=== PATIENT | male | born 1945 | race Caucasian/White ===

== ENCOUNTER 2024-01-21 07:55 | Day surgery (SDC) | payer MEDICARE ==
[~2024-01-21] VITALS: Ht 188 cm; Wt 116.8 kg
[~2024-01-21 07:55] MED LIST: Lactated Ringer's 1,000 ML IV ONE
[2024-01-21] MEDS ORDERED: NS 50 ML IV ONE (08:23)
[2024-01-21] MEDS ORDERED: CeFAZolin Sodium 2,000 MG VIAL ONE (08:23)
[2024-01-21] MEDS ORDERED: METO25 (09:01)
[2024-01-21] MEDS ORDERED: ELIQUIS5 M2 PO (09:02)
[2024-01-21] MEDS ORDERED: LISI5 PO (09:03)
[2024-01-21] MEDS ORDERED: EPLE25 PO (09:04)
[2024-01-21] MEDS ORDERED: HYDACE10B (09:05)
[2024-01-21] MEDS ORDERED: TAMS.4ER PO (09:05)
[2024-01-21] MEDS ORDERED: ZOLP10 PO (09:10)
[2024-01-21] MEDS ORDERED: Crestor40 MG PO (09:11)
[2024-01-21] MEDS ORDERED: Lactated Ringer's 1,000 ML IV ONE ×2 (09:22→11:52)
[2024-01-21] MEDS ORDERED: propofoL 20 ML IV ONE (09:37)
[2024-01-21] MEDS ORDERED: FentaNYL Citrate 50 MCG/ML 2 ML Injection ONE ×2 (09:37→11:20)
[2024-01-21] MEDS ORDERED: Dexamethasone Sod Phos 10 MG/ML 1ML VIAL ONE (09:39)
[2024-01-21] MEDS ORDERED: Ondansetron HCl 2 MG / ML 2ML Vial ONE (09:39)
[2024-01-21] MEDS ORDERED: Lidocaine HCl 2% 10 ML SDA ONE (09:53)
--- NOTE | 2024-01-21 10:39 | NUR ---
01/21/24 1039 MAYA BALDWIN PT ATTEMPTED TO ROLL OVER ONTO HIS LEFT SIDE. ENCOURAGED HIM TO LAY ON HIS RIGHT SIDE. PT ADMITS THAT HE IS A SIDE SLEEPER. DENIES NAUSEA AND DISCOMFORT AT THIS TIME.
--- NOTE | 2024-01-21 10:52 | NUR ---
01/21/24 1052 MAYA BALDWIN PT VERY SLEEPY, STILL ON O2 VIA NC AT 4L
[2024-01-21] MEDS ORDERED: HYDROcodone 5-APAP 325 TAB ONE (11:19)
[2024-01-21 11:54] VITALS: BP 125/68
== END 2024-01-21 12:00 | disposition home or self-care (01) ==
LOC: ORSCSDS 07:55
PROVIDERS: Orthopaedic Surgery
PROC: 01N54ZZ Release Median Nerve, Percutaneous Endoscopic Approach (ICD-10-PCS; principal; 2024-01-21 09:30)
PROC: 01N40ZZ Release Ulnar Nerve, Open Approach (ICD-10-PCS; principal; 2024-01-21 09:30)
DX: G56.22 Lesion of ulnar nerve, left upper limb (principal); G56.02 Carpal tunnel syndrome, left upper limb; I10 Essential (primary) hypertension; E11.9 Type 2 diabetes mellitus without complications; I48.91 Unspecified atrial fibrillation; Z79.01 Long term (current) use of anticoagulants; Z79.899 Other long term (current) drug therapy
CPT/HCPCS: 82947; 87070; 87075; 87205; 88304; 88313; A9270; J0690; J1100; J2001; J2003; J2405; J2704; J3010; J7120

== ENCOUNTER 2024-05-05 15:40 | Inpatient (IN) | payer MEDICARE ==
[~2024-05-05] VITALS: Ht 188 cm; Wt 120.6 kg
[~2024-05-05 15:40] MED LIST changes: +Crestor40 MG PO; +ELIQUIS5 M2 PO; +EPLE25 PO; +HYDACE10B; +LISI5 PO; -Lactated Ringer's 1,000 ML IV ONE; +METO25; +TAMS.4ER PO; +ZOLP10 PO
[2024-05-05] MEDS ORDERED: FentaNYL Citrate 50 MCG/ML 2 ML Injection IV ONE ×2 (16:50→18:05)
[2024-05-05 19:29] LABS: BASOPHILS ABSOLUTE AUTO 0.05 K/mm3 (0.00-0.23); BASOPHILS PERCENT AUTO 1 % (0-2); EOSINOPHILS ABSOLUTE AUTO 0.04 K/mm3 (0.00-0.68); EOSINOPHILS PERCENT AUTO 0 % (0-6); Hematocrit 33.1 % (37.0-53.0); Hemoglobin 11.4 g/dL (13.5-17.5); IMMATURE GRAN ABSOLUTE AUTO 0.03 K/mm3 (0.00-0.10); IMMATURE GRAN PERCENT AUTO 0 % (0-1); LYMPHOCYTES ABSOLUTE AUTO 1.07 K/mm3 (0.84-5.20); LYMPHOCYTES PERCENT AUTO 11 % (21-46); MONOCYTES ABSOLUTE AUTO 0.77 K/mm3 (0.16-1.47); MONOCYTES PERCENT AUTO 8 % (4-13); Mean Corpuscular HGB 32.9 pg (26.0-34.0); Mean Corpuscular HGB Conc 34.4 g/dL (31.5-36.5); Mean Corpuscular Volume 95 fL (80-100); Mean Platelet Volume 9.4 fL (9.1-12.4); NEUTROPHILS ABSOLUTE AUTO 7.73 K/mm3 (1.96-9.15); NEUTROPHILS PERCENT AUTO 80 % (41-73); Platelet Count 212 K/mm3 (150-400); RDW Coefficient Variation 12.7 % (11.7-14.2); RDW Standard Deviation 43.6 fL (35.1-46.3); Red Blood Cell Count 3.47 M/mm3 (4.30-5.90); White Blood Cell Count 9.69 K/mm3 (4.00-11.30)
[2024-05-05] MEDS ORDERED: HYDROmorphone HCl/Pf 1MG SYR IV PRN (19:45)
[2024-05-05 19:55] LABS: Albumin, Blood 4.1 g/dL (3.4-5.0); Albumin/Globulin Ratio 1.4 (0.8-1.8); Bilirubin, Total 0.5 mg/dL (0.1-1.0); Bun/Creatinine Ratio 25.2 (12.0-20.0); Calcium, Blood 9.2 mg/dL (8.5-10.1); Creatinine, Blood 0.72 mg/dL (0.60-1.20); Potassium, Blood 3.8 mmol/L (3.5-5.5); Total Protein, Blood 7.1 g/dL (6.4-8.2)
[2024-05-05] MEDS ORDERED: Ondansetron HCl 2 MG / ML 2ML Vial IV PRN (19:55)
[2024-05-05] MEDS ORDERED: FLU VACC TS2024-25(6MOS UP)/PF 45 MCG/0.5 ML SYRINGE IM ONE (19:55)
[2024-05-05] MEDS ORDERED: NS 1,000 ML IV SCH (19:55)
[2024-05-05] MEDS ORDERED: HYDROmorphone HCl/Pf 1MG SYR IV ONE (20:00)
[2024-05-05] MEDS ORDERED: OxyCODONE 5 mg/Acetamin 325 mg TABLET PO PRN (20:00)
[2024-05-05] MEDS ORDERED: Ketorolac Tromethamine 15mg Vial IV PRN (20:15)
[2024-05-05] MEDS ORDERED: Tamsulosin HCl 0.4 MG Cap PO SCH (21:00)
[2024-05-05] MEDS ORDERED: Metoprolol Tartrate 25 MG Tab PO SCH (21:00)
[2024-05-05] MEDS ORDERED: Sennosides 8.6 MG Tab PO SCH (21:00)
[2024-05-05] MEDS ORDERED: Zolpidem Tartrate 10 MG Tab PO SCH (21:00)
[2024-05-05 21:02] LABS: International Normalized Ratio 1.08; Prothrombin Time Results 11.5 Sec (9.7-11.5)
[2024-05-05 22:35] VITALS: BP 133/75
[2024-05-06] MEDS ORDERED: HYDROmorphone HCl/Pf 1MG SYR IV PRN (01:10)
--- NOTE | 2024-05-06 04:46 | NUR ---
SHIFT SUMMARY JASKARAN ARRIVED TO THE ED WITH A L FEMUR FX. PT ALERT AND FULLY ORIENTED. PAIN RELATIVELY WELL CONTROLLED. ADMIT COMPLETED. DISTAL PULSES PALPABLE, PT ABLE TO WIGGLE TOES. PT KEPT NPO FROM MIDNIGHT. NO ACUTE EVENTS AFTER ARRIVAL. PT ON TELE - HX AFIB. SINUS
[2024-05-06 05:22] LABS: BASOPHILS ABSOLUTE AUTO 0.02 K/mm3 (0.00-0.23); BASOPHILS PERCENT AUTO 0 % (0-2); EOSINOPHILS ABSOLUTE AUTO 0.01 K/mm3 (0.00-0.68); EOSINOPHILS PERCENT AUTO 0 % (0-6); Hematocrit 30.5 % (37.0-53.0); Hemoglobin 10.3 g/dL (13.5-17.5); IMMATURE GRAN ABSOLUTE AUTO 0.03 K/mm3 (0.00-0.10); IMMATURE GRAN PERCENT AUTO 0 % (0-1); LYMPHOCYTES ABSOLUTE AUTO 0.98 K/mm3 (0.84-5.20); LYMPHOCYTES PERCENT AUTO 12 % (21-46); MONOCYTES ABSOLUTE AUTO 0.92 K/mm3 (0.16-1.47); MONOCYTES PERCENT AUTO 11 % (4-13); Mean Corpuscular HGB 32.7 pg (26.0-34.0); Mean Corpuscular HGB Conc 33.8 g/dL (31.5-36.5); Mean Corpuscular Volume 97 fL (80-100); Mean Platelet Volume 9.5 fL (9.1-12.4); NEUTROPHILS ABSOLUTE AUTO 6.29 K/mm3 (1.96-9.15); NEUTROPHILS PERCENT AUTO 76 % (41-73); Platelet Count 200 K/mm3 (150-400); RDW Coefficient Variation 12.8 % (11.7-14.2); RDW Standard Deviation 45.1 fL (35.1-46.3); Red Blood Cell Count 3.15 M/mm3 (4.30-5.90); White Blood Cell Count 8.25 K/mm3 (4.00-11.30)
[2024-05-06 05:38] LABS: International Normalized Ratio 1.09; Prothrombin Time Results 11.6 Sec (9.7-11.5)
[2024-05-06 06:02] LABS: Albumin, Blood 3.9 g/dL (3.4-5.0); Albumin/Globulin Ratio 1.3 (0.8-1.8); Bilirubin, Total 0.5 mg/dL (0.1-1.0); Bun/Creatinine Ratio 24.7 (12.0-20.0); Calcium, Blood 9.1 mg/dL (8.5-10.1); Creatinine, Blood 0.73 mg/dL (0.60-1.20); Magnesium, Blood 1.8 mg/dL (1.6-2.4); Total Protein, Blood 6.9 g/dL (6.4-8.2)
[2024-05-06 07:29] VITALS: BP 145/76
[2024-05-06] MEDS ORDERED: Eplerenone 25 MG Tab PO SCH (09:00)
[2024-05-06] MEDS ORDERED: Lisinopril 5 MG Tab PO SCH (09:00)
[2024-05-06] MEDS ORDERED: Docusate Sodium 100 MG Cap PO SCH (09:00)
[2024-05-06] MEDS ORDERED: Rosuvastatin Calcium 10 MG Tab PO SCH (09:00)
--- NOTE | 2024-05-06 10:33 | NUR ---
DR PARSONS IN TO SEE PT.
--- NOTE | 2024-05-06 10:45 | NUR ---
JEANETH MOCK, ORDER MAKE UP CLERK IN TO SEE PT.
[2024-05-06 14:00] VITALS: BP 148/87
[2024-05-06] MEDS ORDERED: LORazepam 0.5 MG Tab PO PRN (14:10)
--- NOTE | 2024-05-06 15:28 | NUR ---
PT VERY ANXIOUS AND RESTLESS. MEDICATED PER ORDERS FOR ANXIETY AND PAIN. REPOSITIONED PT IN BED. COACHED ON RELAXATION BREATHING. PT HAS FAN ON AND COOL COMPRESS TO HEAD. S.O. BEDSIDE. CALL LIGHT IN REACH.
--- NOTE | 2024-05-06 18:28 | NUR ---
SUMMARY PT HAS BEEN ANXIOUS AND RESTLESS T/O AFTERNOON. MEDICATED PER ORDERS DURING SHIFT FOR ANXIETY AND PAIN. WORKED WITH PT ON RELAXATION BREATHING AND FAN WAS PROVIDED FOR COMFORT. PT WANTED TO GET UP TO USE BSC, EDUCATED PT ON SAFETY AND NEED TO MAINTIN BEDREST UNTIL LLE SURGICALLY REPAIRED. ATTEMPTED TO USE BEDPAN BUT DID NOT HAVE BM. USING URINAL TO VOID. IV FLUIDS INFUSING PER ORDERS. CALL LIGHT IN REACH.
[2024-05-06 20:13] VITALS: BP 124/69
[2024-05-07] VITALS (17 sets, daily range): BP systolic 100–143; BP diastolic 51–80
[2024-05-07] MEDS ORDERED: Vancomycin HCL 1,000 MG in NS 250 ML IV SCH ×2 (06:00→21:30)
[2024-05-07] MEDS ORDERED: CeFAZolin Sodium 2,000 MG in NS 100 ML IV SCH ×2 (06:00→17:30)
[2024-05-07] MEDS ORDERED: Tranexamic Acid 100 ML IV SCH (07:35)
[2024-05-07] MEDS ORDERED: propofoL 20 ML IV ONE (07:48)
[2024-05-07] MEDS ORDERED: FentaNYL Citrate 50 MCG/ML 2 ML Injection ONE ×2 (07:48→11:50)
[2024-05-07] MEDS ORDERED: Dexamethasone Sod Phos 10 MG/ML 1ML VIAL ONE ×2 (07:50→08:18)
[2024-05-07] MEDS ORDERED: Ondansetron HCl 2 MG / ML 2ML Vial ONE (07:50)
[2024-05-07] MEDS ORDERED: Tranexamic Acid 100 ML IV ONE (08:13)
[2024-05-07] MEDS ORDERED: Ropivacaine 0.5% HCL/PF 5 MG/ML 30ML Vial ONE (08:19)
--- NOTE | 2024-05-07 08:19 | NUR ---
SHIFT SUMMARY NOC. PT ADMITTED FOR LEFT FEMUR FRACTURE POST FALL. LLE IS SWOLLEN, PT PULSES INTACT AND PT CAN WIGGLE TOES. PT MEDICATED FOR PAIN WITH ORAL PERCOCET WITH REPORTED RELIEF. PT BECAME MORE CONFUSED AFTER TAKING AMBIEN. PT SET OFF BED ALARM AND WANTING TO GET UP AND AMBULATE TO THE BATHROOM. EXTENSIVE EDUCATION PROVIDED ON BED REST AND PROTECTING LLE. PT ANXIOUS AT TIMES BUT CALMED WITH REASSURANCE, REPOSITIONING, AND COMMUNICATION. PT VOIDING URINE. PT INTERITTENTLY CALLS APPROPRIATELY. CALL LIGHT IN REACH.
[2024-05-07] MEDS ORDERED: Midazolam HCl 1MG / ML 2ML Vial ONE (08:51)
[2024-05-07] MEDS ORDERED: Phenylephrine HCl 100 MCG/ML-NS 10MLSYR (1MG/10ML) ONE (09:33)
[2024-05-07] MEDS ORDERED: Ondansetron HCl 2 MG / ML 2ML Vial IV PRN (09:35)
[2024-05-07] MEDS ORDERED: Naloxone HCl 0.4MG / ML 1ML Vial IV PRN (09:35)
[2024-05-07] MEDS ORDERED: Metoclopramide HCl 10 MG Tab PO PRN (09:35)
[2024-05-07] MEDS ORDERED: Ondansetron 4 MG TAB PO PRN (09:35)
[2024-05-07] MEDS ORDERED: Magnesium Hydroxide Conc 10 ML UDC PO PRN (09:35)
[2024-05-07] MEDS ORDERED: ePHEDrine Sulfate 50 MG/ML 1ML Injection ONE (09:36)
[2024-05-07] MEDS ORDERED: DiphenhydrAMINE HCL 25 MG Cap PO PRN (09:40)
[2024-05-07] MEDS ORDERED: Acetaminophen 325 MG TABLET PO PRN (09:40)
[2024-05-07] MEDS ORDERED: HYDROmorphone HCl/Pf 1MG SYR IV PRN (09:40)
[2024-05-07] MEDS ORDERED: Bisacodyl 10 MG Supp PR PRN (09:40)
[2024-05-07] MEDS ORDERED: OxyCODONE HCL 5 MG TAB PO PRN (09:40)
[2024-05-07] MEDS ORDERED: PNEUMOC 20-VAL CONJ-DIP CRM/PF 0.5 ML SYRINGE IM SCH (09:40)
[2024-05-07] MEDS ORDERED: FLU VACC TS2024-25(6MOS UP)/PF 45 MCG/0.5 ML SYRINGE IM SCH (09:45)
[2024-05-07] MEDS ORDERED: Sugammadex Sodium 200 MG/2ML SDV (100 MG/ML) ONE (09:59)
[2024-05-07] MEDS ORDERED: HYDROmorphone HCl/Pf 1MG SYR ONE (11:47)
[2024-05-07] MEDS ORDERED: NS KCl 20mEq 1,000 ML IV SCH (12:00)
[2024-05-07] MEDS ORDERED: Lactated Ringer's 1,000 ML IV ONE (12:02)
--- NOTE | 2024-05-07 13:14 | NUR ---
PACU TO 216 PT BROUGHT OUT TO HIS ROOM, 216, FROM [facility]. SECURITY CALLED PER PACU DUE TO CONFUSION WHEN FIRST WAKING UP AND THEY CAME OUT TO THE ROOM WITH HIM. HE APPEARS TO BE A/O, DISCUSSED PLAN TO GET HIM UP AND MOVING ONCE A BRACE IS SECURED, DISCUSSED WEIGHT BEARING STATUS TO WHICH HE REPORTED AN UNDERSTANDING OF. HE APPEARS TO BE CALM AND UNDERSTANDING OF THE PLAN, SECURITY NOT NEEDED AT THIS TIME. POST OP VITALS STARTED, EDU WRAP TO LLE C/D/I, GAUZE UNDER EDU C/D/I WELL, DISTAL PULSE PRESENT LLE AND CAP REFIL < 3 SECONDS.
--- NOTE | 2024-05-07 18:36 | NUR ---
SHIFT SUMMARY POD0 DISTAL FEMUR NAILING, A/OX4, VSS, TOLERATING PO, HE WAS A BIT CONFUSED INITIALLY POST OP BUT HAS CLEARED UP AND IS PLEASANT WITH STAFF AND FAMILY. WORKED WITH THERAPY TODAY, NEEDS IROM BRACE FOR MOBILITY. NO ACUTE EVENTS THIS SHIFT, CALL LIGHT IN REACH.
[2024-05-07] MEDS ORDERED: HYDROcodone 10-APAP 325 TAB PO PRN (20:35)
--- NOTE | 2024-05-07 20:40 | NUR ---
PHYSICIAN COMMUNICATION INFORMED HOSPITALIST GISSELLE Parks OF PT REPORTING HOW HE IS NOT LIKING HOW 5MG OXYCODONE IS MAKING HIM FEEL & WOULD PREFER TO STOP MEDICATION IN EXCHANGE FOR HIS HOME DOSE NORCO. GISSELLE Parks PLACED 10/325 MG PO NORCO Q4PRN & REQUESTED OTHER PAIN MEDS BE DC'D. INFORMED PRIMARY RN.
[2024-05-07] MEDS ORDERED: Docusate Sodium 100 MG Cap PO SCH (21:00)
[2024-05-08 00:01] VITALS: BP 118/51
[2024-05-08 04:12] VITALS: BP 144/59
[2024-05-08 05:29] LABS: BASOPHILS ABSOLUTE AUTO 0.01 K/mm3 (0.00-0.23); BASOPHILS PERCENT AUTO 0 % (0-2); EOSINOPHILS PERCENT AUTO 0 % (0-6); Hematocrit 22.7 % (37.0-53.0); Hemoglobin 7.6 g/dL (13.5-17.5); IMMATURE GRAN ABSOLUTE AUTO 0.09 K/mm3 (0.00-0.10); IMMATURE GRAN PERCENT AUTO 1 % (0-1); LYMPHOCYTES ABSOLUTE AUTO 0.81 K/mm3 (0.84-5.20); LYMPHOCYTES PERCENT AUTO 7 % (21-46); MONOCYTES ABSOLUTE AUTO 1.36 K/mm3 (0.16-1.47); MONOCYTES PERCENT AUTO 12 % (4-13); Mean Corpuscular HGB Conc 33.5 g/dL (31.5-36.5); Mean Corpuscular Volume 99 fL (80-100); Mean Platelet Volume 9.8 fL (9.1-12.4); NEUTROPHILS ABSOLUTE AUTO 8.91 K/mm3 (1.96-9.15); NEUTROPHILS PERCENT AUTO 80 % (41-73); Platelet Count 146 K/mm3 (150-400); RDW Coefficient Variation 12.9 % (11.7-14.2); RDW Standard Deviation 46.6 fL (35.1-46.3); White Blood Cell Count 11.18 K/mm3 (4.00-11.30)
[2024-05-08 06:16] LABS: Bun/Creatinine Ratio 26.9 (12.0-20.0); Calcium, Blood 7.9 mg/dL (8.5-10.1); Creatinine, Blood 0.78 mg/dL (0.60-1.20); Magnesium, Blood 1.6 mg/dL (1.6-2.4); Potassium, Blood 4.2 mmol/L (3.5-5.5)
[2024-05-08 07:21] VITALS: BP 105/52
--- NOTE | 2024-05-08 07:34 | NUR ---
SHIFT SUMMARY NOC. POD 1 FOR LEFT FEMUR REPAIR. DRESSING ON LLE IS C/D/I WITH EDU WRAP. NEW ORDERS RECEIVED TO D/C PERCOCET AND START NORCO. PT MEDICATED FOR PAIN X1 WITH REPORTED RELIEF. PT LESS CONFUSED DURING THE NIGHT COMPARED TO PREVIOUS NOC SHIFT WITH THIS RN. PT HAD I ATTEMPT OUT OF BED SETTING OFF BED ALARM. PT FOLLOWING DIRECTIONS AND IS MAINTAINING NWB STATUS ON LLE. PT VOIDING URINE AND TOLERATING CLEAR LIQUIDS. PT CALLS APPROPRIATELY MAJORITY OF THE TIME THIS SHIFT. CALL LIGHT IN REACH.
--- NOTE | 2024-05-08 08:33 | NUR ---
CALLS PLACED TO [employer] AND MULTIPLE RESAW OPERATOR FOR L DORENE BRARAFAELA. DUE TO STAFFING SHORTAGES MULTIPLE RESAW OPERATOR IS NOT AVAILIBLE TODAY AND REQUESTS CALL TOMORROW IF STILL NEEDED. MESSAGE LEFT WITH ANSWERING SERVICE FOR [employer].
--- NOTE | 2024-05-08 09:35 | NUR ---
SECOND CALL TO [facility] AT 0934, PER ANSWERING SERVICE NO CRUTCHING CONTRACTOR SERVICES IN [place] TODAY. DR RODRIGUEZ NOTIFIED DURING AM ROUNDS, STATES HE WILL PLACE BRACE IN OFFICE.
--- NOTE | 2024-05-08 11:24 | NUR ---
ORTHO NERISSA ORTHO ROUNDED ON PATIENT AND PERFORMED A DRESSING CHANGE, DISCUSSED FORMER RECOMMENDATION FOR IROM BRACE STATING IT WOULD BE MORE PROBLMATIC THAN IT WAS WORTH BUT IS STILL RECOMMENDING TTWB FOR NOW AND WILL TAKE AN XR AT HIS FOLLOW UP VISIT AND EVALUATE AGAIN AT THAT TIME. PT ABLE TO GET UP AND TRANSFER SAFELY TO BSC WHILE MAINTAINING WEIGHT BEARING STATUS, PATIENT EVEN VERBALIZED HIS WEIGHT BEARING STATUS TO THIS RN JUST BEFORE TRANSFERRINGTO BSC. REVIEWED THERAPY DC RECOMMENDATIONS WITH THE PATIENT WHICH IS HOME WITH HH. PATIENT LIVES AT HOME WITH HIS WHO IS ABLE TO ASSIST HIM AT HOME, DAUGHTER LIVES LOCALLY AND IS ALSO ABLE TO ASSIST.
[2024-05-08 15:40] VITALS: BP 108/49
--- NOTE | 2024-05-08 17:32 | NUR ---
DISCHARGE/SHIFT SUMMARY POD1 L DISTAL FEMUR FX REPAIR, A/OX4, VSS, TOLERATING PO, ABLE TO STAND PIVOT WITH MINIMAL ASSISTANCE, DRESSING TO L LEG C/D/I. DISCHARGE COMPLETED, WILL DISCUSSED HOME CARE AND FOLLOW UP, HE IS ALREADY TAKING PAIN MEDICATIONS AT HOME AND WILL CONTINUE THEM ON DISCHARGE, PLAN TO BE PICKED UP BY HIS DAUGHTER AT 1900.
== END 2024-05-08 18:10 | disposition home or self-care (01) | DRG 481 ==
LOC: ER 15:40 → SURS 20:25 → ERHOLD 20:25 → SURS 22:22
PROVIDERS: Nurse Practitioner Acute Care; Orthopaedic Surgery; Student in an Organized Health Care Education/Training Program; ADMIT Internal Medicine
PROC: 0QSC06Z Reposition Left Lower Femur with Intramedullary Internal Fixation Device, Open Approach (ICD-10-PCS; principal; 2024-05-07 07:00)
DX: M97.8XXA Periprosthetic fracture around other internal prosthetic joint, initial encounter (principal); I48.20 Chronic atrial fibrillation, unspecified; W10.9XXA Fall (on) (from) unspecified stairs and steps, initial encounter; I10 Essential (primary) hypertension; F32.A Depression, unspecified; E78.5 Hyperlipidemia, unspecified; N40.0 Benign prostatic hyperplasia without lower urinary tract symptoms; Z96.653 Presence of artificial knee joint, bilateral; M48.00 Spinal stenosis, site unspecified; Z79.01 Long term (current) use of anticoagulants; Z79.899 Other long term (current) drug therapy; Z79.811 Long term (current) use of aromatase inhibitors; Z98.890 Other specified postprocedural states; Z79.891 Long term (current) use of opiate analgesic
CPT/HCPCS: 36415; 73552; 80048; 80053; 83735; 85025; 85610; 85730; 94760; 94762; 96374; 96375; 96376; 97110; 97161; 97530; 99285-25; A9270; C1713; C1769; J0690; J1100; J1171; J1885; J2250; J2371; J2405; J2704; J2795; J3010; J3370; J7030; J7050; J7120

== ENCOUNTER → 2024-05-19 | Outpatient (CLI) | payer MEDICARE | LOC: LAB SHORT 14:45 → LAB 14:45 | DX: R30.0 Dysuria (principal) | CPT/HCPCS: 87077; 87086; 87186 ==

== ENCOUNTER 2024-11-28 04:37 | Emergency (ER) | payer MEDICARE ==
[~2024-11-28] VITALS: Ht 188 cm; Wt 111.1 kg
[~2024-11-28 04:37] MED LIST changes: +METO25ER PO
[2024-11-28] MEDS ORDERED: Ondansetron HCl 2 MG / ML 2ML Vial IV ONE (06:05)
[2024-11-28] MEDS ORDERED: FentaNYL Citrate 50 MCG/ML 2 ML Injection IV ONE (06:05)
[2024-11-28] MEDS ORDERED: Morphine Sulfate 4 MG/1 ML Injection IV ONE (07:30)
[2024-11-28 08:28] LABS: BASOPHILS ABSOLUTE AUTO 0.03 K/mm3 (0.00-0.23); BASOPHILS PERCENT AUTO 0 % (0-2); EOSINOPHILS ABSOLUTE AUTO 0.07 K/mm3 (0.00-0.68); EOSINOPHILS PERCENT AUTO 1 % (0-6); Hematocrit 34.9 % (37.0-53.0); Hemoglobin 11.3 g/dL (13.5-17.5); IMMATURE GRAN ABSOLUTE AUTO 0.04 K/mm3 (0.00-0.10); IMMATURE GRAN PERCENT AUTO 1 % (0-1); LYMPHOCYTES ABSOLUTE AUTO 1.00 K/mm3 (0.84-5.20); LYMPHOCYTES PERCENT AUTO 12 % (21-46); MONOCYTES ABSOLUTE AUTO 0.81 K/mm3 (0.16-1.47); MONOCYTES PERCENT AUTO 10 % (4-13); Mean Corpuscular HGB Conc 32.4 g/dL (31.5-36.5); Mean Corpuscular Volume 95 fL (80-100); NEUTROPHILS ABSOLUTE AUTO 6.24 K/mm3 (1.96-9.15); NEUTROPHILS PERCENT AUTO 76 % (41-73); NRBC ABSOLUTE 0.00 K/mm3 (0.00-0.02); NRBC Auto 0.0 /100 WBC (0.0-0.2); Platelet Count 249 K/mm3 (150-400); RDW Coefficient Variation 13.2 % (11.7-14.2); RDW Standard Deviation 46.5 fL (35.1-46.3)
[2024-11-28] MEDS ORDERED: HYDROmorphone HCl/Pf 1MG SYR IV ONE (08:45)
[2024-11-28] MEDS ORDERED: Metoprolol Tartrate 1 MG/ML 5 ML VIAL IV ONE (08:45)
[2024-11-28 08:54] LABS: Alanine Aminotransfer (ALT/SGP 29.0 U/L (12-78); Albumin, Blood 3.6 g/dL (3.4-5.0); Albumin/Globulin Ratio 0.9 (0.8-1.8); Anion Gap 7.0 mmol/L (3-11); Aspartate Aminotrans (AST/SGOT 42.0 U/L (12-37); Bilirubin, Total 0.8 mg/dL (0.1-1.0); Blood Urea Nitrogen 16.0 mg/dL (8-24); CO2, Blood 27.0 mmol/L (21-32); Calcium, Blood 8.7 mg/dL (8.5-10.1); Chloride, Blood 106.0 mmol/L (98-108); Creatinine, Blood 0.6 mg/dL (0.60-1.20); Globulin, Blood 4.1 g/dL (2.2-4.0); Glucose, Blood 145.0 mg/dL (70-99); Potassium, Blood 4.1 mmol/L (3.5-5.5); Sodium, Blood 136.0 mmol/L (136-145); Total Protein, Blood 7.7 g/dL (6.4-8.2)
[2024-11-28 09:01] VITALS: BP 130/65
== END 2024-11-28 09:05 | disposition short-term general hospital (02) ==
LOC: ER 04:37
PROVIDERS: Emergency Medicine
DX: S12.500A Unspecified displaced fracture of sixth cervical vertebra, initial encounter for closed fracture (principal); S10.83XA Contusion of other specified part of neck, initial encounter; R07.9 Chest pain, unspecified; W18.30XA Fall on same level, unspecified, initial encounter; Z79.01 Long term (current) use of anticoagulants; Z79.899 Other long term (current) drug therapy; I10 Essential (primary) hypertension; I48.91 Unspecified atrial fibrillation; E78.5 Hyperlipidemia, unspecified
CPT/HCPCS: 70450; 70491; 71046; 80053; 85025; 96374-59; 96375; 99285-25; J1171; J2270; J2405; J3010; Q9967

== ENCOUNTER 2024-12-30 09:23 | Emergency (ER) | payer MEDICARE ==
[~2024-12-30] VITALS: Ht 193 cm; Wt 115.7 kg
[2024-12-30] MEDS ORDERED: HYDROcodone 10-APAP 325 TAB PO ONE (09:30)
[2024-12-30 10:12] VITALS: BP 147/95
[2024-12-30] MEDS ORDERED: HYDR1TAB94 PO (10:31)
== END 2024-12-30 10:54 | disposition home or self-care (01) ==
LOC: ER 09:23
DX: S72.401A Unspecified fracture of lower end of right femur, initial encounter for closed fracture (principal); I48.91 Unspecified atrial fibrillation; I10 Essential (primary) hypertension; E78.5 Hyperlipidemia, unspecified; X58.XXXA Exposure to other specified factors, initial encounter; Z79.899 Other long term (current) drug therapy
CPT/HCPCS: 73560-RT; A9270